=== PATIENT | male | born 1995 | race Caucasian/White ===

== ENCOUNTER 2023-08-29 08:18 | Outpatient (AMB) | payer OTHER, SELFPAY ==
[2023-08-29 08:56] VITALS: BP 120/62; PULSE 69; O2SAT 99; BMI 23.2
--- NOTE | 2023-08-29 08:56 | MHC.PC.OV ---
Vital Signs 08/29/23 08:56 Height 5 ft 11 in Weight 166 lb 6 oz BMI 23.2 BP 120/62 Blood Pressure Location Lt brachial Position Sitting Pulse 69 Pulse Source Pulse Oximeter Pulse Oximetry (%) 99 Oxygen Delivery Method Room Air Intake Visit Reasons: Groin injury Intake Note: Patient reports his [place] dog jumped onto him on and he has been experiencing groin pain ever since. The pain is located on the right side of the groin. Certified Energy Manager Required: No Accompanied by: Self / Same As Patient Allergies No Known Allergies Allergy (Verified 08/29/23 09:01) Coding
--- NOTE | 2023-08-29 09:02 | AM.OFFWIN_ITS ---
Intake Vital Signs 3 08/29/23 08:56 Height 5 ft 11 in Weight 166 lb 6 oz BMI 23.2 BP 120/62 Blood Pressure Location Lt brachial Position Sitting Pulse 69 Pulse Source Pulse Oximeter Pulse Oximetry (%) 99 Oxygen Delivery Method Room Air Intake Visit Reasons: Groin injury Intake Note: Patient is here for right sided groin pain. Patient reports his dog jumped onto his groin area 2 days ago. Patient has been having continuous pain not relieved by tylenol. 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 Hurts when sitting, moving. Has noticed some swelling of right testicle. Reports normal urination w/o blood. To tx pain has been taking APAP 1000mg q5-6 hours and Motrin 600mg q4 hours w/o relief. PFSH Social History Patient Tobacco Use Status: Never used Tobacco Review of Systems Const All systems reviewed & are unremarkable except as noted in HPI and below Physical Exam Vital Signs: Last Vital Signs Pulse 69 08/29/23 08:56 BP 120/62 08/29/23 08:56 Pulse Ox 99 08/29/23 08:56 Oxygen Delivery Method Room Air 08/29/23 08:56 BMI result Body Mass Index 23.2 Const Other: awake alert cooperative speaking in full sentences offered and declined laboratory tester for exam Other: + cremasteric reflex General: Yes bladder normal to palpation and Yes no CVA tenderness Male General Exam: Yes tenderness Penis: normal penis and circumcised Meatus: meatus normal Scrotum: testes descended bilaterally Testes: Testes normal, testicular lie normal and testicular tenderness on the right Male genitals images: 2 1. pain with palpation Back/Spine/Pelvis Back: no CVA tenderness Assessment & Plan Assessment & Plan (1) Injury of groin: Code(s): S39.91XA - Unspecified injury of abdomen, initial encounter Qualifiers: Encounter type: initial encounter Qualified Code(s): S39.91XA - Unspecified injury of abdomen, initial encounter Plan: . (2) Testicular pain, right: Code(s): N50.811 - Right testicular pain Plan . Orders: Orders 2 US scrotum doppler Today N50.811 - Right testicular pain, S39.91XA - Unspecified injury of abdomen, initial encounter Medications: New 2 meloxicam take with food 7.5 mg PO DAILY 14 tabs 0RF tizanidine 4 mg PO BID 5 days PRN 10 tabs 0RF muscle spasticity Patient Instructions: OK TO TAKE TYLENOL 1000MG NEEDED THREE TIMES PER DAY DO NOT DRIVE, WORK OR SIGN LEGAL DOCUMENTS WHILE USING THE MUSCLE RELAXER, THIS CAN ALTER YOUR AWARENESS. TAKE ONLY NEEDED. YOU WILL BE CALLED WITH US RESULTS ONCE BACK IF BLOOD IS NOTED IN YOUR BLOOD YOU HAVE INCREASED PAIN OR WORSENING OF SYMPTOMS, I RECOMMEND URGENT FOLLOWUP. OTHERWISE THIS WILL GET BACK W/ TIME. Coding Level of Care Code Est Pt Level 4 (23979) Diagnoses Injury of groin, initial encounter S39.91XA Encounter type: initial encounter Testicular pain, right N50.811
== END 2023-08-29 09:29 | disposition home or self-care (01) ==
PROVIDERS: Visit Provider Nurse Practitioner Family
DX: S39.91XA Unspecified injury of abdomen, initial encounter (principal); N50.811 Right testicular pain
CPT/HCPCS: 99214

== ENCOUNTER 2023-10-18 08:51 | Outpatient (AMB) | payer OTHER, SELFPAY ==
[2023-10-18 09:17] VITALS: BP 130/66; PULSE 69; TEMP 36.7; O2SAT 97; BMI 23.6
--- NOTE | 2023-10-18 09:17 | MHC.OFFWIV ---
Intake Vital Signs 10/18/23 09:17 Height 5 ft 11 in Weight 169 lb BMI 23.6 BP 130/66 Blood Pressure Location Lt brachial Position Sitting Pulse 69 Pulse Source Pulse Oximeter Temp 98.1 F Temp Source Temporal Artery Scan Pulse Oximetry (%) 97 Oxygen Delivery Method Room Air Intake Visit Reasons: EP RT middle finger swollen/pain Intake Note: pt is here today for rt middle finger swollen pain started Sunday Patient Tobacco Use Status: Never used Tobacco Allergies No Known Allergies Allergy (Verified 10/18/23 09:17) Do you need a note to return to daycare/school/sports/work: No HPI EP RT middle finger swollen/pain HPI Details This is a 28 year old male patient who presents today with a swollen right middle finger at base of his nail bed. He denies any laceration or injury to area. 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 He has been soaking finger and tried some topical antibiotic ointment without resolution. He denies any fever or chills. Is having increasing pain and swelling in that finger. PENDING SALE TO [facility] Social History Patient Tobacco Use Status: Never used Tobacco Review of Systems Const All systems reviewed & are unremarkable except as noted in HPI and below Physical Exam Vital Signs: Last Vital Signs Temp 98.1 F 10/18/23 09:17 Pulse 69 10/18/23 09:17 BP 130/66 10/18/23 09:17 Pulse Ox 97 10/18/23 09:17 Oxygen Delivery Method Room Air 10/18/23 09:17 BMI result Body Mass Index 23.6 Const General: cooperative, healthy appearing and no acute distress Resp Effort & Inspection: normal respiratory effort Skin General skin exam: no rashes or lesions noted Extrem Other: ttp, swelling, erythema right middle finger at base of nail bed - medial aspect of finger. No drainage or area of fluctuance. General: Yes capillary refill normal Psych Appearance: grossly normal Mental Status: mental status grossly normal Speech and movement: Normal speech and movement present Assessment & Plan Assessment & Plan (1) Superficial injury of right middle finger with infection: Code(s): S60.942A - Unspecified superficial injury of right middle finger, initial encounter; L08.9 - Local infection of the skin and subcutaneous tissue, unspecified Plan: I&D not indicated at this time. I advised patient to continue epsom salt soaks, and may continue to apply antibiotic ointment to area. I will also start him on a short course of doxy to see if this resolves the infection. We reviewed indications, use, possible s/e of medication. If he develops an abscess or worsening swelling/pain or fever, he should return to the clinic for further evaluation. He verbalizes understanding and agrees to plan. Medications: New doxycycline hyclate 100 mg PO BID 5 days 10 tabs 0RF L08.9 - Local infection of the skin and subcutaneous tissue, unspecified, S60.942A - Unspecified superficial injury of right middle finger, initial encounter Coding Level of Care Code Est Pt Level 3 (48959) Diagnoses Superficial injury of right middle finger with infection S60.942A; L08.9
== END 2023-10-18 10:06 | disposition home or self-care (01) ==
PROVIDERS: Visit Provider Nurse Practitioner Family
DX: S60.942A Unspecified superficial injury of right middle finger, initial encounter (principal); L08.9 Local infection of the skin and subcutaneous tissue, unspecified; Z04.2 Encounter for examination and observation following work accident
CPT/HCPCS: 99213

== ENCOUNTER 2024-02-22 14:05 | Outpatient (AMB) | payer OTHER, SELFPAY ==
--- NOTE | 2024-02-22 14:13 | MHC.OFFWIV ---
Intake Vital Signs 02/22/24 14:16 Height 5 ft 11 in Weight 168 lb BMI 23.4 BP 112/70 Blood Pressure Location Lt brachial Position Sitting Pulse 71 Pulse Source Pulse Oximeter Temp 98.2 F Temp Source Oral Pulse Oximetry (%) 98 Oxygen Delivery Method Room Air Intake Visit Reasons: EP Groin pain Intake Note: pt is here c/o Groin pain. started in August after fall. Pain had subsided but has now returned Patient Tobacco Use Status: Never used Tobacco Allergies No Known Allergies Allergy (Verified 02/22/24 14:13) Do you need a note to return to daycare/school/sports/work: No HPI HPI Comments History of Present Illness Details Patient is a 28-year-old male complaining of right groin pain. He states it started in August, he did not have a trauma at that time, he used ibuprofen and muscle relaxers and that seemed to get better over time. However, he says starting him for the last week or so, he denies any triggering incident or injury. He states it is worse when he is driving and using his right leg. He denies a history of a hernia. He said his right testicle he will sometimes painful as well. He denies any fevers, increased frequency or urgency or blood in his urine. He states he is sexually active with his and they are monogamous. He states they both just had STI testing because she is , and they are both negative. [facility] Social History Patient Tobacco Use Status: Never used Tobacco Review of Systems Const All systems reviewed & are unremarkable except as noted in HPI and below Physical Exam Vital Signs: Last Vital Signs Temp 98.2 F 02/22/24 14:16 Pulse 71 02/22/24 14:16 BP 112/70 02/22/24 14:16 Pulse Ox 98 02/22/24 14:16 Oxygen Delivery Method Room Air 02/22/24 14:16 BMI result Body Mass Index 23.4 Const General: cooperative, healthy appearing, comfortable, no acute distress and well developed Orientation/consciousness: patient oriented x3 Limitations: no limitations HEENT Head: Yes normal to inspection Eyes General: appearance normal, both eyes and all related structures Neck Neck: Yes normal visual inspection and Yes full ROM GI Palpation (GI): no hernias Other: No evidence of hernia in the right groin Male General Exam: Yes normal external exam, No ecchymosis, No edema, No erythema, No hernia, No inguinal lymphadenopathy, No lacerations, No Genital lesions present and No tenderness Penis: normal penis and No Genital lesions present Meatus: meatus normal Scrotum: scrotum normal Testes: Testes normal Skin General skin exam: no rashes or lesions noted Neuro General: patient oriented x3 Extrem General: Yes normal to inspection Assessment & Plan Assessment & Plan (1) Right groin pain: Code(s): R10.31 - Right lower quadrant pain Plan: Vital signs are stable, physical exam unremarkable. Likely musculoskeletal, recommended RICE and time. Follow-up with your PCP if it does not feel better. Thoroughly explained testicular torsion as well as incarcerated and strangulated hernias the patient so he could understand when he needs to seek emergent medical attention. Nothing like that seems to be happening today. Plan see above Coding Level of Care Code New Pt Level 3 (51209) Diagnoses Right groin pain R10.31
[2024-02-22 14:16] VITALS: BP 112/70; PULSE 71; TEMP 36.8; O2SAT 98; BMI 23.4
== END 2024-02-22 14:59 | disposition home or self-care (01) ==
PROVIDERS: Visit Provider Physician Assistant
DX: R10.31 Right lower quadrant pain (principal)
CPT/HCPCS: 99203